=== PATIENT | female | born 1955 | race Two or more races ===

== ENCOUNTER 2018-11-02 13:59 | Emergency (ER) | payer MEDICARE ==
[2018-11-02] MEDS ORDERED: Sodium Chloride 0.9% 10 ML Syringe FLUSH PRN (14:28)
--- NOTE | 2018-11-02 14:28 | EDM.PDOC ---
ED HPI GENERAL MEDICAL PROBLEM - General Chief Complaint: Chest Pain Stated Complaint: CHEST PAIN, LEG WEAKNESS, HEADACHE Time Seen by Provider: 11/02/18 14:20 Source of Information: Reports: Patient, Family History Limitations: Reports: Language Barrier, Other ( interpreting) - History of Present Illness INITIAL COMMENTS - FREE TEXT/NARRATIVE: Mary is a 63 year old female who presents to the ED today with sudden onset mid sternal chest pain, non radiating while at work today. Patient denies any radiation of pain. Patient c/o mild nausea, no vomiting diarrhea. Mild sob. Similar episode 3 months ago, never found the source. NO hx of heart problems, DVT or PE. Patient does have GERD, in prilosec. NO daily aspirin. No gallbladder anymore. Has not taken anything for pain, movement, deep breath makes pain worse. Onset: Today, Sudden Duration: Hour(s): (2) Chest Pain Score (Numeric/FACES): 9 - Related Data Allergies Allergy/AdvReac Type Severity Reaction Status Date / Time No Known Allergies Allergy Verified 11/02/18 14:20 Home Meds: Home Meds glyBURIDE/Metformin HCl [Glyburid-Metformin 1.25-250 mg] 1 tab PO DAILY [History] ED ROS GENERAL - Review of Systems Review Of Systems: ROS reveals no pertinent complaints other than HPI. ED EXAM, GENERAL - Physical Exam Exam: See Below Exam Limited By: Language Barrier General Appearance: Alert, Moderate Distress Eye Exam: Bilateral Eye: EOMI, PERRL Nose: Normal Inspection Throat/Mouth: Normal Oropharynx Head: Atraumatic, Normocephalic Neck: Normal Inspection, Supple, Non-Tender, Full Range of Motion Respiratory/Chest: No Respiratory Distress, Lungs Clear, Other (midsternal chest tenderness) Cardiovascular: Normal Peripheral Pulses, Regular Rate, Rhythm, No Murmur, Other (no edema, feet cool to touch, plantar aspect, hx of Raynaud's) GI/Abdominal: Normal Bowel Sounds, Soft, Non-Tender Extremities: Normal Inspection Neurological: Alert, Oriented, CN II-XII Intact Psychiatric: Normal Affect, Anxious Skin Exam: Warm, Dry, Intact Lymphatic: No Adenopathy EKG INTERPRETATION EKG Date: 11/02/18 Time: 14:20 Rhythm: NSR [place]: Normal P-Wave: Present QRS: Normal ST-T: Normal QT: Normal Comparison: NA - No Prior EKG Course - Vital Signs Last Recorded V/S: Last Vital Signs Temp 35.6 C 11/02/18 14:15 Pulse 80 11/02/18 16:09 Resp 16 11/02/18 17:09 BP 129/82 11/02/18 17:09 Pulse Ox 97 11/02/18 16:09 Mary is a 63 year old female who presents to the ED today with c/o midsternal chest pain, started suddenly at work. Please refer to HPI and focused exam. Patient arrives here initially hypertensive, improved with subsided pain. Concern initially for cardiac involvement, EKG unremarkable, negative for any ischemic findings, PE on differential although no real risk factors and d dimer is negative. Patient had reassuring undetectable initial troponin. Remaining blood work reassuring with normal white count, stable HGB. Glucose of 166 on panel, CRP elevated at 1.24. Chest X-ray negative for infiltrate. Patient's pain resolved here after GI cocktail. I did, given onset of chest pain, keep patient here for 4 hour troponin which remains undetectable and pain had not returned, likely symptoms related to GERD. Patient and reassured. I would like patient to follow up in clinic this week. Reasons to return to the ED discussed, patient agreeable to plan of care and discharged in stable condition. - Orders/Labs/Meds Orders: Active Orders 24 hr Category Date Time Status Peripheral IV Care [RC] . DIRECTED Care 11/02/18 14:28 Active Nitroglycerin [Nitrostat] Med 11/02/18 14:29 Active 0.4 mg SL Q5M PRN Sodium Chloride 0.9% [Normal Saline] 1,000 ml Med 11/02/18 14:30 Active IV ASDIRECTED Sodium Chloride 0.9% [Saline Flush] Med 11/02/18 14:28 Active 10 ml FLUSH ASDIRECTED PRN Peripheral IV Insertion Adult [OM.PC] Routine Oth 11/02/18 14:28 Ordered Medication Orders Sodium Chloride (Normal Saline) 1,000 mls @ 999 mls/hr IV ASDIRECTED LEX Last Admin: 11/02/18 14:55 Dose: 999 mls/hr Nitroglycerin (Nitrostat) 0.4 mg SL Q5M PRN PRN Reason: Chest Pain Last Admin: 11/02/18 15:13 Dose: 0.4 mg Sodium Chloride (Saline Flush) 10 ml FLUSH ASDIRECTED PRN PRN Reason: Keep Vein Open Last Admin: 11/02/18 15:34 Dose: 10 ml Labs: Laboratory Tests 11/02/18 11/02/18 11/02/18 Range/Units 14:28 14:28 14:28 WBC 5.5 (4.5-11.0) K/uL RBC 5.02 (3.30-5.50) M/uL Hgb 13.8 (12.0-15.0) g/dL Hct 42.5 (36.0-48.0) % MCV 85 (80-98) fL MCH 28 (27-31) pg MCHC 33 (32-36) % Plt Count 166 (150-400) K/uL Neut % (Auto) 66 (36-66) % Lymph % (Auto) 19 L (24-44) % Williamson % (Auto) 10 H (2-6) % Eos % (Auto) 4 (2-4) % Baso % (Auto) 1 (0-1) % D-Dimer, Quantitative 101 (0.0-400.0) ng/mL Sodium 140 (140-148) mmol/L Potassium 3.7 (3.6-5.2) mmol/L Chloride 105 (100-108) mmol/L Carbon Dioxide 26 (21-32) mmol/L Anion Gap 8.7 (5.0-14.0) mmol/L BUN 14 (7-18) mg/dL Creatinine 1.0 (0.6-1.0) mg/dL Est Cr Clr Drug Dosing 40.29 mL/min Estimated GFR (MDRD) 56 L (>60) Glucose 166 H (74-106) mg/dL Calcium 8.5 (8.5-10.1) mg/dL Total Bilirubin 0.3 (0.2-1.0) mg/dL AST 26 (15-37) U/L ALT 23 (12-78) U/L Alkaline Phosphatase 118 H (46-116) U/L Troponin I < 0.017 (0.000-0.056) ng/mL C-Reactive Protein 1.24 H (0.0-0.3) mg/dL Total Protein 6.5 (6.4-8.2) g/dL Albumin 3.5 (3.4-5.0) g/dL Globulin 3.0 (2.3-3.5) g/dL Albumin/Globulin Ratio 1.2 (1.2-2.2) Lipase (73-393) U/L 11/02/18 11/02/18 Range/Units 14:29 17:29 WBC (4.5-11.0) K/uL RBC (3.30-5.50) M/uL Hgb (12.0-15.0) g/dL Hct (36.0-48.0) % MCV (80-98) fL MCH (27-31) pg MCHC (32-36) % Plt Count (150-400) K/uL Neut % (Auto) (36-66) % Lymph % (Auto) (24-44) % Williamson % (Auto) (2-6) % Eos % (Auto) (2-4) % Baso % (Auto) (0-1) % D-Dimer, Quantitative (0.0-400.0) ng/mL Sodium (140-148) mmol/L Potassium (3.6-5.2) mmol/L Chloride (100-108) mmol/L Carbon Dioxide (21-32) mmol/L Anion Gap (5.0-14.0) mmol/L BUN (7-18) mg/dL Creatinine (0.6-1.0) mg/dL Est Cr Clr Drug Dosing mL/min Estimated GFR (MDRD) (>60) Glucose (74-106) mg/dL Calcium (8.5-10.1) mg/dL Total Bilirubin (0.2-1.0) mg/dL AST (15-37) U/L ALT (12-78) U/L Alkaline Phosphatase (46-116) U/L Troponin I < 0.017 (0.000-0.056) ng/mL C-Reactive Protein (0.0-0.3) mg/dL Total Protein (6.4-8.2) g/dL Albumin (3.4-5.0) g/dL Globulin (2.3-3.5) g/dL Albumin/Globulin Ratio (1.2-2.2) Lipase 239 (73-393) U/L Meds: Medications Generic Name Dose Route Start Last Admin Trade Name Freq PRN Reason Stop Dose Admin Sodium Chloride 1,000 mls @ 999 mls/hr 11/02/18 14:30 11/02/18 14:55 Normal Saline IV 999 mls/hr ASDIRECTED LEX Administration Nitroglycerin 0.4 mg 11/02/18 14:29 11/02/18 15:13 Nitrostat SL 0.4 mg Q5M PRN Administration Chest Pain Sodium Chloride 10 ml 11/02/18 14:28 11/02/18 15:34 Saline Flush FLUSH 10 ml ASDIRECTED PRN Administration Keep Vein Open Discontinued Medications Generic Name Dose Route Start Last Admin Trade Name Freq PRN Reason Stop Dose Admin Aspirin 324 mg 11/02/18 14:29 11/02/18 15:22 Aspirin PO 11/02/18 14:30 324 mg ONETIME ONE Administration Al Hydroxide/Mg Hydroxide 15 0 ml 11/02/18 14:29 11/02/18 15:25 ml/ Lidocaine HCl 15 ml PO 11/02/18 14:30 15 ml ONETIME ONE Administration Departure - Departure Time of Disposition: 18:30 Disposition: Home, Self-Care 01 Condition: Good, Serious Clinical Impression: Epigastric pain, Atypical chest pain Instructions: Gastroesophageal Reflux Disease, Adult, Chest Wall Pain Referrals: PCP,None [Primary Care Provider] - Forms: ED Department Discharge Additional Instructions: Your heart enzymes remained undetectable, meaning your pain today is not from your heart. I think you likely had an exacerbation of your heart burn/GERD. Please continue your prescribed medications and follow up in clinic next week. Return here with any worsening symptoms or new concerns. I am glad you are feeling better. - My Orders Last 24 Hours: My Active Orders 11/02/18 14:28 Peripheral IV Care [RC] . DIRECTED Sodium Chloride 0.9% [Saline Flush] 10 ml FLUSH ASDIRECTED PRN Peripheral IV Insertion Adult [OM.PC] Routine 11/02/18 14:29 Nitroglycerin [Nitrostat] 0.4 mg SL Q5M PRN 11/02/18 14:30 Sodium Chloride 0.9% [Normal Saline] 1,000 ml IV ASDIRECTED - Assessment/Plan Last 24 Hours: My Active Orders 11/02/18 14:28 Peripheral IV Care [RC] . DIRECTED Sodium Chloride 0.9% [Saline Flush] 10 ml FLUSH ASDIRECTED PRN Peripheral IV Insertion Adult [OM.PC] Routine 11/02/18 14:29 Nitroglycerin [Nitrostat] 0.4 mg SL Q5M PRN 11/02/18 14:30 Sodium Chloride 0.9% [Normal Saline] 1,000 ml IV ASDIRECTED
[2018-11-02] MEDS ORDERED: Alum Hydrox/Mag Hydrox/Simeth 15 ML, Lidocaine 2% 15 ML PO ONE ×2 (14:29)
[2018-11-02] MEDS ORDERED: Nitroglycerin 0.4 MG Tab.SL SL PRN (14:29)
[2018-11-02] MEDS ORDERED: Aspirin 81 MG Tab.Chew PO ONE (14:29)
[2018-11-02] MEDS ORDERED: Sodium Chloride 0.9% 1,000 ML IV SCH (14:30)
--- NOTE | 2018-11-02 17:38 | CRLCR ---
INDICATION: CHEST PAIN TECHNIQUE: Chest 1 view. COMPARISON: None. FINDINGS: Cardiovascular and mediastinum: Heart size and vasculature are normal in caliber and appearance. Mediastinum is within normal limits. Lungs and pleural space: Lungs are clear. No sign of infiltrate or mass. No sign of pleural effusion. No pneumothorax. Bones and soft tissues: No significant findings. IMPRESSION: Unremarkable chest. Dictated by: Arie Garcia MD @ 11/02/2018 17:37:09 (Electronically Signed)
== END 2018-11-02 18:31 | disposition home or self-care (01) ==
LOC: JP.ED 13:59
DX: R07.89 Other chest pain (principal); R10.13 Epigastric pain; K21.9 Gastro-esophageal reflux disease without esophagitis; Z90.49 Acquired absence of other specified parts of digestive tract; Z79.899 Other long term (current) drug therapy
CPT/HCPCS: 36415; 71045; 80053; 83690; 84484; 85025; 85379; 86140; 99284; 99285-25; A9270-GY; J7030